=== PATIENT | female | born 2000 | race Caucasian/White ===

== ENCOUNTER 2018-06-08 16:44 | Emergency (ER) | payer OTHER ==
--- NOTE | 2018-06-08 16:52 | EDPHY ---
H & P Time Seen by Provider: 06/08/18 16:52 HPI/ROS: HPI CHIEF COMPLAINT: Chest pain. HISTORY OF PRESENT ILLNESS: This is a 17-year-old female she is otherwise healthy however she is on control, presents emergency room stating that she was seen at [facility] and had an abnormal EKG and referred to the emergency room. Patient states that 2 weeks ago she saw her psychiatrist and was going to be started on a stimulant medication but was requested to get an EKG prior to starting that medication. She initially went to the [facility] to have this EKG performed and was told that there EKG machine was not working appropriately and that she may have had an abnormal EKG and was referred to urgent care to have this done. She went to urgent care today almost week and half later to have an EKG performed. She happened to mention urgent care that she has had some increased anxiety and chest discomfort and urgent care referred her to the emergency room. She arrives to the emergency room stating that she thinks she is fine however was told to come here as she told urgent care she had some chest discomfort. She tells me that she was due to have a screening EKG for new medication her psychiatrist wanted to prescribed. Since being told she had an abnormal EKG at [facility] a week and half ago she has been having increasing anxiety and some chest discomfort. She describes as anxiety and chest pressure. She told this to urgent care Urgent care referred her to the emergency room. She arrives to the emergency room denies any chest pain or chest pressure or chest discomfort. She does report increasing anxiety She does report that today at 11:00 a.m. 12:00 p.m. She had increasing anxiety and some chest tightness. It is now resolved. No history of DVT or PE. Past Medical History: Denies medical history Past Surgical History: Denies surgical history Social History: Denies drugs alcohol tobacco Family History: Cardiac disease in her family. ROS REVIEW OF SYSTEMS: 10 Systems were reviewed and negative with the exception of the elements mentioned in the history of present illness. Exam Constitutional triage nursing summary reviewed, vital signs reviewed, awake/ alert. Eyes normal conjunctivae and sclera, EOMI, PERRLA. HENT normal inspection, atraumatic, moist mucus membranes, no epistaxis, neck supple/ no meningismus, no raccoon eyes. Respiratory clear to auscultation bilaterally, normal breath sounds, no respiratory distress, no wheezing. Cardiovascular rate normal, regular rhythm, no murmur, no edema, distal pulses normal. Gastrointestinal soft, non-tender, no rebound, no guarding, normal bowel sounds, no distension, no pulsatile mass. Genitourinary no CVA tenderness. Musculoskeletal no midline vertebral tenderness, full range of motion, no calf swelling, no tenderness of extremities, no meningismus, good pulses, neurovascularly intact. Skin pink, warm, & dry, no rash, skin atraumatic. Neurologic awake, alert and oriented x 3, AAOx3, moves all 4 extremities equally, motor intact, sensory intact, CN II-XII intact, normal cerebellar, normal vision, normal speech. Psychiatric normal mood/affect. Heme/Lymph/Immune no lymphadenopathy. Differential Diagnosis: Differential diagnosis includes but is not limited to: ACS, atypical chest pain, pneumothorax, pneumonia, pulmonary embolism, aortic dissection, congestive heart failure, tumor, musculoskeletal pain, esophageal pain, GERD, peptic ulcer disease, pancreatitis Medical Decision Making: Plan for this patient IV establishment, check D-dimer given control, chest x-ray, EKG and troponin basic labs. Re-evaluation: EKG interpretation by me on record in [employer] system. Impression time of EKG 165, sinus rhythm rate of 85 without any signs of acute ischemia. Troponin is 0.00 D-dimer negative EKG nonischemic. Chest x-ray: Negative for acute cardiopulmonary disease. 174: Patient resting comfortably here in the emergency room in no acute distress denies chest pain shortness of breath. Her workup is unremarkable. EKG interpretation by me on record in [employer] system. Impression: Time of EKG 183, this is normal sinus rhythm rate of 78 no signs of acute ischemia or cardiac arrhythmia. Similar previous EKG. 185: Patient re-evaluated this time denies any chest pain or shortness of breath resting comfortably. No acute distress. Would like to go home. Workup is rather unremarkable. Return precautions discussed. Return emergency room if worsening chest pain shortness of breath or not doing well. Source: Patient Constitutional: Initial Vital Signs Temperature (C) 36.8 C 06/08/18 16:55 Heart Rate 84 06/08/18 16:55 Respiratory Rate 16 06/08/18 16:55 Blood Pressure 138/84 H 06/08/18 16:55 O2 Sat (%) 97 06/08/18 16:55 O2 Delivery Mode Room Air Allergies/Adverse Reactions: sulfamethoxazole [From Bactrim] Allergy (Verified 06/08/18 16:53) trimethoprim [From Bactrim] Allergy (Verified 06/08/18 16:53) Home Medications: Medication Instructions Recorded Lamictal 06/08/18 Norgestrel-Ethinyl Estradiol 06/08/18 Medical Decision Making - Diagnostics Imaging Results: Imaging Impressions Chest X-Ray 06/08/18 17:06 Impression: Negative frontal chest radiograph. - Data Points Laboratory Results: Laboratory Results 06/08/18 17:06 06/08/18 17:06 06/08/18 06/08/18 06/08/18 17:13 17:06 17:06 WBC RBC Hgb Hct MCV MCH MCHC RDW Plt Count MPV Neut % (Auto) Lymph % (Auto) [place] % (Auto) Eos % (Auto) Baso % (Auto) Nucleat RBC Rel Count Absolute Neuts (auto) Absolute Lymphs (auto) Absolute Monos (auto) Absolute Eos (auto) Absolute Basos (auto) Absolute Nucleated RBC Immature Gran % Immature Gran # D-Dimer Sodium 139 mEq/L mEq/L (135-145) Potassium 4.2 mEq/L mEq/L (3.5-5.2) Chloride 109 mEq/L mEq/L (97-110) Carbon Dioxide 24 mEq/l mEq/l (22-31) Anion Gap 6 mEq/L mEq/L (6-14) BUN 15 mg/dL mg/dL (7-23) Creatinine 0.8 mg/dL mg/dL (0.6-1.0) Estimated GFR > 60 Glucose 88 mg/dL mg/dL (70-100) Calcium 9.6 mg/dL mg/dL (8.5-10.4) POC Troponin I 0.00 ng/mL ng/mL (0.00-0.08) Beta HCG, Qual NEGATIVE 06/08/18 06/08/18 17:06 17:06 WBC 7.38 10^3/uL 10^3/uL (3.80-9.50) RBC 4.55 10^6/uL 10^6/uL (4.18-5.33) Hgb 14.1 g/dL g/dL (12.6-16.3) Hct 42.5 % % (38.0-47.0) MCV 93.4 fL fL (81.5-99.8) MCH 31.0 pg pg (27.9-34.1) MCHC 33.2 g/dL g/dL (32.4-36.7) RDW 12.3 % % (11.5-15.2) Plt Count 248 10^3/uL 10^3/uL (150-400) MPV 11.3 fL fL (8.7-11.7) Neut % (Auto) 58.3 % % (39.3-74.2) Lymph % (Auto) 31.0 % % (15.0-45.0) [place] % (Auto) 8.8 % % (4.5-13.0) Eos % (Auto) 0.8 % % (0.6-7.6) Baso % (Auto) 0.8 % % (0.3-1.7) Nucleat RBC Rel Count 0.0 % % (0.0-0.2) Absolute Neuts (auto) 4.30 10^3/uL 10^3/uL (1.70-6.50) Absolute Lymphs (auto) 2.29 10^3/uL 10^3/uL (1.00-3.00) Absolute Monos (auto) 0.65 10^3/uL 10^3/uL (0.30-0.80) Absolute Eos (auto) 0.06 10^3/uL 10^3/uL (0.03-0.40) Absolute Basos (auto) 0.06 10^3/uL 10^3/uL (0.02-0.10) Absolute Nucleated RBC 0.00 10^3/uL 10^3/uL (0-0.01) Immature Gran % 0.3 % % (0.0-1.1) Immature Gran # 0.02 10^3/uL 10^3/uL (0.00-0.10) D-Dimer < 0.27 ug/mLFEU ug/mLFEU (0.00-0.50) Sodium Potassium Chloride Carbon Dioxide Anion Gap BUN Creatinine Estimated GFR Glucose Calcium POC Troponin I Beta HCG, Qual Medications Given: Discontinued Medications Sodium Chloride (Ns) 1,000 mls @ 0 mls/hr IV EDNOW ONE; Wide Open PRN Reason: Protocol Stop: 06/08/18 17:07 Last Admin: 06/08/18 17:09 Dose: 1,000 mls Point of Care Test Results: Chemistry 06/08/18 17:13 POC Troponin I 0.00 ng/mL ng/mL (0.00-0.08) Departure - Departure Disposition: Home, Routine, Self-Care Clinical Impression: Anxiety Condition: Good Instructions: Anxiety (ED) Additional Instructions: 1. Rest and stay well-hydrated 2. Return to the emergency room if there is worsening symptoms questions or concerns. This includes worsening shortness of breath, chest pain, not doing well. Referrals: [facility],. [Clinic] - As per Instructions
[2018-06-08 16:58] VITALS: BP 138/84
[2018-06-08] MEDS ORDERED: NS 1,000 ML IV ONE (17:06)
[2018-06-08 17:23] LABS: PLATELET COUNT 248 10^3/uL (150-400)
--- NOTE | 2018-06-09 19:52 | CPEKG ---
Test Reason : OPEN Blood Pressure : / mmHG Vent. Rate : 085 BPM Atrial Rate : 085 BPM P-R Int : 132 ms QRS Dur : 085 ms QT Int : 361 ms P-R-T Axes : 053 063 025 degrees QTc Int : 430 ms Sinus rhythm Confirmed by Guillermo Montgomery ([id number]) on 06/09/2018 7:51:31 PM Referred By: Guillermo Montgomery Confirmed By:Guillermo Montgomery
--- NOTE | 2018-06-09 19:52 | CPEKG ---
Test Reason : OPEN Blood Pressure : / mmHG Vent. Rate : 078 BPM Atrial Rate : 078 BPM P-R Int : 136 ms QRS Dur : 084 ms QT Int : 380 ms P-R-T Axes : 059 063 030 degrees QTc Int : 433 ms Sinus rhythm Confirmed by Guillermo Montgomery ([id number]) on 06/09/2018 7:51:31 PM Referred By: Guillermo Montgomery Confirmed By:Guillermo Montgomery
== END 2018-06-08 19:16 | disposition home or self-care (01) ==
DX: F41.9 Anxiety disorder, unspecified (principal); E86.9 Volume depletion, unspecified
CPT/HCPCS: 84484-ER